=== PATIENT | female | born 1980 | race Caucasian/White ===

== ENCOUNTER 2018-06-30 17:46 | Emergency (ER) | payer MEDICAID ==
[~2018-06-30] VITALS: Ht 162.6 cm; Wt 72.6 kg
[2018-06-30 17:50] VITALS: BP 168/101
[2018-06-30] MEDS ORDERED: ONDANSETRON 4 MG/2 ML VIAL IVP ONE (18:00)
[2018-06-30] MEDS ORDERED: LORazepam 2 MG/ML VIAL IVP ONE (18:00)
[2018-06-30] MEDS ORDERED: MECLIZINE 25 MG TAB PO ONE (18:00)
--- NOTE | 2018-06-30 18:01 | NUR ---
EKG IN PROCESS.
--- NOTE | 2018-06-30 18:14 | NUR ---
PATIENT PRESENTS TO ED WITH THE CHIEF C/O NON-RADIATING CHEST PAIN STARTED COUPLE DAYS AGO. PT STATED NAUSEATED. NO VOMITING NOTED. STATES SHE IS HAVING DIARRHEA SINCE 6 MONTHS. NO BLOOD IN DIARRHEA. HAD DIARRHEA X3 TODAY. NO BLOOD IN DIARRHEA. NOT UNDER ANY MEDICATION. SKIN IS PINK/WARM/DRY. AAOX4 WITH EVEN AND STEADY GAIT. LUNGS CLEAR BL. HR EVEN AND REGULAR. PT DENIES ANY FEVER, SOB, OR COUGH AT THIS TIME. PATIENT STATES PAIN OF 6/10 AT THIS TIME. VSS. PATIENT POSITIONED FOR COMFORT. HOB ELEVATED. BEDRAILS UP X2. BED DOWN. ER MD MADE AWARE OF PT STATUS.
[2018-06-30 18:31] LABS: BASOPHILS % (AUTO) 0.4 % (0.0-2.0); EOSINOPHILS # (AUTO) 0.1 K/uL (0-0.4); EOSINOPHILS % (AUTO) 1.9 % (0.0-4.0); HEMATOCRIT 41.1 % (36-48); HEMOGLOBIN 13.5 g/dL (12.0-16.0); LYMPHOCYTES # (AUTO) 2.2 K/uL (2.5-16.5); LYMPHOCYTES % (AUTO) 31.9 % (20.5-51.1); MEAN CORPUSCULAR HEMOGLOBIN 31 pg (27-31); MEAN CORPUSCULAR HGB CONC 33 g/dL (33-37); MEAN CORPUSCULAR VOLUME 94.2 fL (80-94); MONOCYTES # (AUTO) 0.6 K/uL (0.8-1.0); MONOCYTES % (AUTO) 8.6 % (1.7-9.3); NEUTROPHILS # (AUTO) 3.9 K/uL (1.8-7.7); NEUTROPHILS % (AUTO) 57.2 % (42.2-75.2); PLATELET COUNT (AUTO) 229 K/uL (140-450); RED BLOOD CELL COUNT(AUTO) 4.37 MIL/uL (4.20-5.40); RED CELL DISTRIBUTION WIDTH 13.7 % (11.6-13.7); WHITE BLOOD COUNT (AUTO) 6.8 K/uL (4.8-10.8)
[2018-06-30 18:37] LABS: APPEARANCE,URINE CLEAR (CLEAR); BILIRUBIN,URINE NEGATIVE (NEGATIVE); BLOOD, URINE NEGATIVE (NEGATIVE); COLOR,URINE YELLOW (YELLOW); LEUKOCYTE ESTERASE ,URINE NEGATIVE (NEGATIVE); NITRITE, URINE NEGATIVE (NEGATIVE); PH,URINE 5.5 (5.0-9.0); UGLUCOSE NEGATIVE (NEGATIVE)
[2018-06-30 18:40] LABS: ANION GAP 9.8 (8-16); CARBON DIOXIDE 28.5 mmol/L (21-32); CREATININE 0.7 mg/dL (0.6-1.3); POTASSIUM 3.3 mmol/L (3.5-5.1)
[2018-06-30 18:47] LABS: ALBUMIN 3.8 g/dL (3.4-5.0); MAGNESIUM 1.9 mg/dL (1.8-2.4); TOTAL BILIRUBIN 0.2 mg/dL (0.0-1.0)
[2018-06-30 18:48] LABS: BARBITURATE, URINE NEG. ng/ml (NEG <=200); BENZODIAZEPINE, URINE NEG. ng/mL (NEG <=200); CANNABINOID, URINE NEG. ng/mL (NEG <=50); COCAINE, URINE NEG. ng/mL (NEG <=300); OPIATE, URINE NEG. ng/mL (NEG <=2000); PHENCYCLIDINE SCREEN,URINE NEG. ng/mL (NEG <=25)
[2018-06-30 19:00] LABS: PROTHROMBIN TIME 9.2 secs (10.8-13.4)
[2018-06-30 19:12] VITALS: BP 119/73
--- NOTE | 2018-06-30 19:12 | NUR ---
Patient discharged with v/s stable. Written and verbal after care instructions given and explained. Patient alert, oriented and verbalized understanding of instructions. Ambulatory with steady gait. All questions addressed prior to discharge. ID band removed. Patient advised to follow up with PMD. Rx of VISTARIL given. Patient educated on indication of medication including possible reaction and side effects. Opportunity to ask questions provided and answered.
--- NOTE | 2018-06-30 19:12 | NUR ---
REPORT GIVEN TO [facility] RN FOR CONTINUITY OF CARE.
== END 2018-06-30 19:12 | disposition home or self-care (01) ==
LOC: MED 17:46
DX: F41.0 Panic disorder [episodic paroxysmal anxiety] (principal)
CPT/HCPCS: 36415; 71045; 80053; 80305; 81003; 81025; 83735; 84484; 85025; 85610; 85730; 87804; 93005; 96374; 96375; 99284; J2060; J2405; J8597; Q0092